=== PATIENT | male | born 1995 | race Caucasian/White ===

== ENCOUNTER 2018-07-28 15:02 | Emergency (ER) | payer OTHER ==
[~2018-07-28] VITALS: Ht 157.5 cm; Wt 63.5 kg
[2018-07-28 15:23] VITALS: BP 126/81
--- NOTE | 2018-07-28 16:00 | NUR ---
patient ambulated to rm 5 with steady gait
[2018-07-28] MEDS ORDERED: NEOMYCIN/POLYMYXIN/BACITRACIN 0.9 GM/1 PKT TP ONE (16:10)
[2018-07-28] MEDS ORDERED: LIDOCAINE/EPI 1% 1:100000 20 ML VIAL INJ ONE (16:10)
--- NOTE | 2018-07-28 16:10 | NUR ---
23M BIB MOTHER WITH C/O SYNCOPAL EPISODE TODAY AROUND 1330 TODAY WHILE TAKING A SHOWER. PT WITH APPROX 2CM LACERATION ABOVE RIGHT EYE. BLEEDING CONTROLLED. PT DENIES ANY DIZZINESS OR HEAD PAIN AT THIS TIME. CLEAR SPEECH WITH FULL SENTENCE. NO FACIAL/SMILE ASYMMETRY. GCS=15. PERRLA. EQUAL VENEER SAWYER TO BL ARMS AND EQUAL PUSH/PULL BL LOWER EXTREMITIES. NAD. VSS. PATIENT CHANGED INTO GOWN AND TO CARDIAC, PULSE, BP, AND PULSE OX MONITORING. AWAITING ER MD [place]. WILL CONTINUE TO MONITOR.
[2018-07-28 16:35] LABS: BASOPHILS % (AUTO) 0.4 % (0.0-2.0); EOSINOPHILS % (AUTO) 0.5 % (0.0-4.0); HEMATOCRIT 47.9 % (36-52); LYMPHOCYTES # (AUTO) 1.3 K/uL (2.0-11.5); LYMPHOCYTES % (AUTO) 13.9 % (20.5-51.1); MEAN CORPUSCULAR HEMOGLOBIN 29 pg (27-31); MEAN CORPUSCULAR HGB CONC 33 g/dL (33-37); MEAN CORPUSCULAR VOLUME 88.2 fL (80-94); MONOCYTES # (AUTO) 0.5 K/uL (0.8-1.0); MONOCYTES % (AUTO) 5.2 % (1.7-9.3); NEUTROPHILS # (AUTO) 7.7 K/uL (1.8-7.7); PLATELET COUNT (AUTO) 309 K/uL (140-450); RED BLOOD CELL COUNT(AUTO) 5.44 MIL/uL (4.20-6.10); WHITE BLOOD COUNT (AUTO) 9.6 K/uL (4.8-10.8)
[2018-07-28 17:13] LABS: ANION GAP 8.7 (8-16); CARBON DIOXIDE 31.7 mmol/L (21-32); CHLORIDE 106 mmol/L (98-107); GFR ARICAN-AMERICAN 119 mL/min (>90); GLUCOSE 94 mg/dL (74-106); POTASSIUM 4.4 mmol/L (3.5-5.1); SODIUM SERUM 142 mmol/L (136-145); UREA NITROGEN, BLOOD 13 mg/dL (7-18)
[2018-07-28 17:19] LABS: ALBUMIN 4.5 g/dL (3.4-5.0); ASPARTATE AMINOTRANSFERASE 14 U/L (15-37); TOTAL BILIRUBIN 0.5 mg/dL (0.0-1.0)
[2018-07-28 17:28] LABS: APPEARANCE,URINE CLEAR (CLEAR); BILIRUBIN,URINE NEGATIVE (NEGATIVE); BLOOD, URINE NEGATIVE (NEGATIVE); COLOR,URINE YELLOW (YELLOW); LEUKOCYTE ESTERASE ,URINE NEGATIVE (NEGATIVE); NITRITE, URINE NEGATIVE (NEGATIVE); UGLUCOSE NEGATIVE (NEGATIVE)
--- NOTE | 2018-07-28 17:31 | NUR ---
notified er md antoine that patient is requesting pain medication. awaiting orders.
[2018-07-28 17:36] LABS: BARBITURATE, URINE NEG. ng/ml (NEG <=200); BENZODIAZEPINE, URINE NEG. ng/mL (NEG <=200); CANNABINOID, URINE NEG. ng/mL (NEG <=50); COCAINE, URINE NEG. ng/mL (NEG <=300); OPIATE, URINE NEG. ng/mL (NEG <=2000); PHENCYCLIDINE SCREEN,URINE NEG. ng/mL (NEG <=25)
--- NOTE | 2018-07-28 19:22 | NUR ---
Pt report given to Curtis EVANS. Transfer of care at this time.
--- NOTE | 2018-07-28 19:30 | NUR ---
PATIENT RESTING AT THIS TIME. NO SIGNS OF DISTRESS.
[2018-07-28 20:05] VITALS: BP 110/75
--- NOTE | 2018-07-28 20:29 | NUR ---
Patient noted to have existing wounds upon arrival to ER. Wound covered with dressing. Physician informed.
== END 2018-07-28 20:05 | disposition home or self-care (01) ==
LOC: MED 15:02
DX: S01.111A Laceration without foreign body of right eyelid and periocular area, initial encounter (principal); S01.511A Laceration without foreign body of lip, initial encounter; W18.39XA Other fall on same level, initial encounter; Y93.89 Activity, other specified; Y92.89 Other specified places as the place of occurrence of the external cause; Y99.8 Other external cause status
CPT/HCPCS: 12011; 36415; 70450; 71045; 80053; 80305; 81003; 82948; 84484; 85025; 93005; 99285; G0482; J2001